=== PATIENT | male | born 1980 | race Caucasian/White ===

== ENCOUNTER 2017-06-20 13:53 | Emergency (ER) | payer MEDICAID ==
[~2017-06-20] VITALS: Ht 175.3 cm; Wt 63.5 kg
[2017-06-20] MEDS ORDERED: BACLOFEN10 MG ORAL (14:01)
[2017-06-20] MEDS ORDERED: VYTORIN 10-401 EACH ORAL (14:01)
--- NOTE | 2017-06-20 14:19 | Emergency Room Report ---
History of Present Illness General Chief Complaint: Pain Source: Patient Present Illness HPI 36-year-old male presents to the emergency department complaining of 8/10 in severity pain, swelling to the right side of his neck. Denies fevers, chills, and dysphasia, night sweats, significant changes in weight, or history of immunocompromise. he describes his pain is tightness. He reports that he has had chronic symptoms similar to this for over a year primarily on the left side however over the course of the last 3 days she has noticed these symptoms prominently on the right side of his neck. Patient denies recent neck injury, trauma or fall. Denies photophobia, headache or recent upper respiratory illness. He denies dental pain. denies upper extremity weakness. denies sore throat. Denies numbness tingling or loss of sensation or gross motor movements of the extremities, incontinence of bowel or bladder. Denies CP, Palpitations, LOC, AMS, dizziness, Changes in Vision, Sensation, paresthesias, or a sudden severe headache. Allergies: Coded Allergies: No Known Allergies (Unverified , 06/20/17) Patient History Past Medical History: see triage record Past Surgical History: none Pertinent Family History: none Reviewed Nursing Documentation: PMH: Agreed, PSxH: Agreed Nursing Documentation-PMH Hx Cardiac Problems: Yes - High cholesterol Hx Hypertension: Yes Review of Systems All Other Systems: negative except mentioned in HPI Physical Exam Vital Signs Date Time Temp Pulse Resp B/P (MAP) Pulse Ox O2 Delivery O2 Flow Rate FiO2 06/20/17 13:56 98.2 83 16 133/78 100 Room Air Sp02 EP Interpretation: reviewed, normal General Appearance: no apparent distress, alert, GCS 15, non-toxic Head: normocephalic, atraumatic Eyes: bilateral eye normal inspection, bilateral eye PERRL ENT: hearing grossly normal, normal pharynx, normal voice, TMs + canals normal , uvula midline, moist mucus membranes Neck: full range of motion, no meningismus, no bony tend, supple/symm/no masses , tender lateral - bilateral tenderness of the SCM's , prominently visible SCMS that are palpated to be tight in nature. pt. has FROM, no LAD. Respiratory: lungs clear, normal breath sounds, no wheezing, speaking full sentences Cardiovascular #1: regular rate, rhythm Rectal: deferred Genitourinary: normal inspection, no CVA tenderness Musculoskeletal: back normal, gait/station normal, normal range of motion, swelling - the right SCM is palpable and tight, pt. has FROM no obvious LAD. no erythema or increased temperature to palpation. Neurologic: alert, oriented x3, responsive, motor strength/tone normal, sensory intact, speech normal Psychiatric: other - flat affect, moderate marijuana odor. Skin: normal color, no rash, warm/dry, well hydrated Lymphatic: no adenopathy Medical Decision Making PA Attestation Dr. Waldron is my supervising Physician whom patient management has been discussed with. Diagnostic Impression: Primary Impression: Pain Additional Impressions: Neck swelling History of muscle spasm ER Course 36-year-old male presents to the emergency department complaining of 8/10 in severity pain, swelling to the right side of his neck. Denies fevers, chills, and dysphasia, night sweats, significant changes in weight, or history of immunocompromise. he describes his pain is tightness. He reports that he has had chronic symptoms similar to this for over a year primarily on the left side however over the course of the last 3 days she has noticed these symptoms prominently on the right side of his neck. Patient denies recent neck injury, trauma or fall. Denies photophobia, headache or recent upper respiratory illness. He denies dental pain. denies upper extremity weakness. denies sore throat. Denies numbness tingling or loss of sensation or gross motor movements of the extremities, incontinence of bowel or bladder. Denies CP, Palpitations, LOC, AMS, dizziness, Changes in Vision, Sensation, paresthesias, or a sudden severe headache. Ddx considered but are not limited to LAD, abscess, SCM sprain, muscle spasm, torticollis, malignancy, thyroid nodule just to name a few Vital signs: are WNL, pt. is afebrile H&PE are most consistent with tight and palpable SCM muscle no acute evidence of abscess or infection at this time. ORDERS: none required at this time, the diagnosis is clinical ED INTERVENTIONS: -Toradol IM I do not suspect an emergent condition at this time. With current presentation, pt. is stable for close outpatient follow up and conservative treatment. D/w pt. to return promptly to ED with worsening or new symptoms.- Pt. (and or responsible alliance party) verbalizes' understanding and agreement with proposed treatment plan. DISCHARGE: At this time pt. is stable for d/c to home. Will provide printed patient care instructions, and any necessary prescriptions. Care plan and follow up instructions have been discussed with the patient prior to discharge. Last Vital Signs Date Time Temp Pulse Resp B/P (MAP) Pulse Ox O2 Delivery O2 Flow Rate FiO2 06/20/17 13:56 98.2 83 16 133/78 100 Room Air Disposition: HOME, SELF-CARE Condition: Stable Scripts Naproxen Sodium (NAPROXEN SODIUM) 550 Mg Tablet 550 MG ORAL TWICE A DAY, #20 TAB Prov: Chichi Gaines 06/20/17 Patient Instructions: Medical Screening Exam, Muscle Pain, Adult Additional Instructions: Take medications as directed. Follow up with a Primary Care Provider in 3-5 days, For Neurologist and or District Recruiter referral. even if your symptoms have resolved. --Please review list of primary care clinics, if you do not already have a primary care provider Return sooner to ED if new symptoms occur, or current symptoms become worse. - Please note that this Emergency Department Report was dictated using [employer] service analyst technology software, occasionally this can lead to erroneous entry secondary to interpretation by the dictation equipment. Chichi Gaines Jun 20, 2017 14:19
[2017-06-20] MEDS ORDERED: Ketorolac 60mg Inj IM ONE (14:45)
[2017-06-20] MEDS ORDERED: NAPROXEN SODIU550 M1 ORAL (14:46)
[2017-06-20] MEDS ORDERED: ROBAXIN-750750 MG PO (14:46)
[2017-06-20 14:55] VITALS: BP 133/78
== END 2017-06-20 14:55 | disposition home or self-care (01) ==
LOC: EMR 14:17
DX: M54.2 Cervicalgia (principal); R22.1 Localized swelling, mass and lump, neck; M62.838 Other muscle spasm; I10 Essential (primary) hypertension
CPT/HCPCS: 96372; 99283